=== PATIENT | female | born 1975 | race Two or more races ===

== ENCOUNTER → 2024-12-25 | Outpatient (CLI) | payer MEDICAID, SELFPAY ==
--- NOTE | 2024-12-25 10:00 | XR_ITS ---
Examination: Breast ultrasound complete, bilateral Date and time of exam: December 25, 2024 1001 hrs. Indications: Family history, sister, breast cancer, right axillary pain one year Technique: Real-time grayscale ultrasonographic imaging bilateral breasts, including all 4 quadrants as well as nipple retroareolar and axillary regions. Findings: Sonographic images right breast 12:00 cyst 8 x 8 mm 2:00 cyst 9 x 8 mm 8:00 oval mass circumscribed 4 x 4 millimeter Right axillary lymph node 18 mm Sonographic images left breast Multiple benign cysts 12:00 oval mass circumscribed 8 x 6 mm Impression: BI-RADS Category 3: Probably benign findings Recommend 1 additional 6 month bilateral breast sonography follow-up to document stability of bilateral solid breast nodules described above
--- NOTE | 2024-12-25 11:00 | XR_ITS ---
Examination: Diagnostic digital mammography, bilateral Computer aided detection 3-D breast Tomosynthesis, bilateral Date and time of exam: 01/22/2025, 10:42 AM Comparisons: 08/27/2016 Indications:Palpable abnormality right axilla Technique: Nonmagnified MLO, CC views of the breasts to been obtained, reconstructed from 3-D Tomosynthesis images. R2 computer aided detection program utilized for evaluation of suspicious masses and/or abnormal calcifications. 3-D Tomosynthesis images obtained. Findings: The breasts are heterogeneously dense, which may obscure small masses. No evidence of abnormal masses or suspicious calcifications. Morphologically normal-appearing bilateral axillary lymph nodes. Impression: BI-RADS category 2: Benign findings Recommend 1 year follow-up mammogram
== END | disposition home or self-care (01) ==
LOC: CDIM 09:45
PROVIDERS: Referring Provider Family Medicine; Visit Provider Family Medicine
DX: R92.323 Mammographic fibroglandular density, bilateral breasts (principal); N63.25 Unspecified lump in the left breast, overlapping quadrants; N63.13 Unspecified lump in the right breast, lower outer quadrant
CPT/HCPCS: 76641; 77062; 77066; G0279

== ENCOUNTER → 2025-10-11 | Outpatient (CLI) | payer MEDICAID, SELFPAY ==
--- NOTE | 2025-10-11 14:00 | XR_ITS ---
Examination: Breast ultrasound complete, bilateral Date and time of exam: October 11, 2025, 1408 hours INDICATIONS: Bilateral breast sonography December 25, 2024 right breast 8:00 nodule 4 x 4 millimeter Left breast 12:00 nodule 8 x 6 mm Technique: Real-time grayscale ultrasonographic imaging bilateral breasts, including all 4 quadrants as well as nipple retroareolar and axillary regions. Findings: Sonographic images right breast 1:00 cyst 7 x 8 mm No solid nodules Sonographic images left breast 12:00 nodule circumscribed 6 x 5 mm Retroareolar cyst 9 x 6 mm IMPRESSION: BI-RADS Category 2: Benign findings
== END | disposition home or self-care (01) ==
PROVIDERS: PCP Family Medicine; Referring Provider Family Medicine; Visit Provider Family Medicine
DX: N63.0 Unspecified lump in unspecified breast (principal)
CPT/HCPCS: 76641